=== PATIENT | female | born 1940 | race African-American/Black ===

== ENCOUNTER 2020-07-16 16:42 | Emergency (ER) | payer MEDICARE ==
[~2020-07-16] VITALS: Ht 167.6 cm; Wt 64.5 kg
[2020-07-16 16:52] VITALS: TEMP 98.2
[2020-07-16 17:36] LABS: BASO % 0.8 % (0.0-2.0); EOS # 0.1 (0.0-0.7); EOS % 2.6 % (0-4.0); GRAN # 2.1 (1.4-6.5); GRAN % 53.4 % (42.2-75.2); HEMOGLOBIN 11.9 g/dl (12.5-16.0); LYMPH # 1.2 (1.2-3.4); LYMPH % 30.7 % (20.0-51.0); MEAN CELL VOLUME 95 fl (80.0-100.0); MEAN CORPUSCULAR HEMOGLOBIN 33 pg (27.0-31.0); MEAN CORPUSCULAR HGB CONC 35 g/dl (33.0-37.0); MEAN PLATELET VOLUME 10.9 fl (7.4-10.4); MONO # 0.5 (0.1-0.6); MONO % 12.2 % (1.7-9.3); PLATELET COUNT 215 K/mm3 (130-400); RED BLOOD COUNT 3.63 M/mm3 (4.10-5.30); REDCELL DISTRIBUTION WIDTH-CV 11.1 % (11.5-14.5)
[2020-07-16 17:38] LABS: HEMATOCRIT 34.3 % (37.0-47.0)
[2020-07-16 17:44] LABS: ALANINE AMINOTRANSFERASE 18 U/L (4-34); ALBUMIN 4.2 gm/dL (3.5-5.0); ALKALINE PHOSPHATASE 122 U/L (50-136); ANION GAP 5 mmol/L (7-16); AST,SGOT 36 U/L (15-37); BILIRUBIN,TOTAL 0.4 mg/dL (0.0-1.0); BLOOD UREA NITROGEN 24 mg/dL (7-17); CALCIUM 9.9 mg/dL (8.4-10.2); CARBON DIOXIDE 32 mmol/L (22-30); CHLORIDE 96 mmol/L (98-107); GLUCOSE 238 mg/dL (74-106); POTASSIUM 4.8 mmol/L (3.4-5.0); SODIUM 133 mmol/L (137-145); TOTAL PROTEIN 7.8 gm/dL (6.4-8.2)
[2020-07-16 17:57] LABS: TROPONIN-I < 0.012 ng/mL (0.000-0.035)
[2020-07-16 17:59] LABS: COLLECTION METHOD CATHETER
[2020-07-16 18:11] LABS: PH 7 (5-8); SQUAMOUS EPITHELIAL 0-2 /hpf; URINE APPEARANCE Clear; URINE BACTERIA None Seen /hpf; URINE BILIRUBIN Negative (NEGATIVE); URINE BLOOD Negative (NEGATIVE); URINE COLOR Straw; URINE GLUCOSE Negative (NEGATIVE); URINE KETONE Negative (NEGATIVE); URINE LEUKOCYTE ESTERASE Negative (NEGATIVE); URINE NITRATE Negative (NEGATIVE); URINE PROTEIN(semi-quant) Negative (NEGATIVE); URINE RBC 0-2 /hpf; URINE UROBILINOGEN Negative (NEGATIVE)
[2020-07-16 19:46] VITALS: BP 154/76; PULSE 88
--- NOTE | 2020-07-17 09:48 | NUR ---
Mica Paster received consult from ED for patient who discharged last night and was interested in Home Health services. SW contacted patient's daughter, Sherrie Dean (ph#[phone]). Patient lives in [place] with her family and Sherrie reports patient moved to about seven months ago from [place]. Patient sees Dr. Aguiar for primary care and does not use any DME. Sherrie reports patient is normally independent with ADLS however has had a couple falls recently. ARMOND reviewed HH agencies that serve [place] with Sherrie and her brother, Narayan (ph#[phone]) and they chose [facility]. Sherrie reports she plans to contact Dr. Aguiar's office to schedule a follow up appointment this morning. ARMOND contacted Michaela at [facility] and faxed referral. Michaela advised they will coordinate [facility] Dr. Aguiar's office to obtain HH orders.
== END 2020-07-16 20:00 | disposition home or self-care (01) ==
LOC: COL.ER 16:42
PROVIDERS: Nurse Practitioner
DX: R42 Dizziness and giddiness (principal); R53.83 Other fatigue

== ENCOUNTER → 2021-10-02 | Outpatient (CLI) | payer MEDICARE | LOC: MC.RAD 10:07 | DX: Z12.31 Encounter for screening mammogram for malignant neoplasm of breast (principal) ==

== ENCOUNTER 2021-10-05 12:26 | Emergency (ER) | payer MEDICARE, MEDICAID ==
[~2021-10-05] VITALS: Ht 170.2 cm; Wt 61.4 kg
[2021-10-05 12:48] VITALS: PULSE 66; TEMP 98.1
[2021-10-05 14:44] VITALS: BP 142/74
== END 2021-10-05 14:44 | disposition home or self-care (01) ==
LOC: COL.ER 12:26
DX: S01.511A Laceration without foreign body of lip, initial encounter (principal); S60.212A Contusion of left wrist, initial encounter; S80.02XA Contusion of left knee, initial encounter; R40.2410 Glasgow coma scale score 13-15, unspecified time; Z28.310 Unvaccinated for COVID-19; W01.198A Fall on same level from slipping, tripping and stumbling with subsequent striking against other object, initial encounter; Y92.488 Other paved roadways as the place of occurrence of the external cause